=== PATIENT | female | born 1980 | race Caucasian/White ===

== ENCOUNTER → 2016-11-04 | Outpatient (CLI) | payer OTHER ==
[~2016-11-04] MED LIST: ATOR10TA9 PO; BENA20TA2 PO; DOCU240C31 PO; DOCU240C31 PO/NG; GADOBUTROL 7.5 MMOL/7.5 ML VIAL ONE; HYDR473S51 PO; IBUP-1222 PO; LABE100T3 PO; LABE200T3 PO; LABE300T PO; LEVO25TA4 PO; OXYC-302 PO; PREN1TAB60 PO
== END | disposition home or self-care (01) ==
LOC: CFH 14:58
PROVIDERS: ATTEND Family Medicine
DX: G93.9 Disorder of brain, unspecified (principal)
CPT/HCPCS: 70553; A9585